=== PATIENT | male | born 1985 | race Caucasian/White ===

== ENCOUNTER 2021-02-21 19:09 | Emergency (ER) | payer BC, OTHER ==
[2021-02-21 19:36] VITALS: BP 131/80; PULSE 74; O2SAT 100
[2021-02-21] MEDS ORDERED: BABY ASPIRIN 81 MG CHEW PO ONE (19:46)
[2021-02-21] MEDS ORDERED: DUONEB 0.5-3 MG/3 ml Neb IH ONE (19:47)
--- NOTE | 2021-02-21 20:03 | ERPHSYRPT ---
- History of Present Illness Time Seen by Provider: 02/21/21 19:11 Historian: patient Exam Limitations: no limitations Patient Subjective Stated Complaint: pt states he has not used meth in 3-4 days and thinks hes having symptoms related to coming off the meth. states he has chest pressure, dizziness, and anxiety. Triage Nursing Assessment: pt alert and oriented, answers questions approp. pt ambulatory with steady gait noted. respirations nonlabored with lungs cta, skin warm and dry. heart rate 74 on monitor, sinus rhythm. Physician History: 35 years old male with history of tobacco abuse, substance abuse presented in the ER with chief complaint of chest pain and tightness with pressure last 3 days. Patient reports he quit using methamphetamine 3 days ago cold turkey and started to have chest pressure and tightness and feels as if somebody is sitting on his chest. It hurts to take a deep breath. Patient is very anxious and feels as if he is having panic attacks with throat closing sensations at times. Denies any productive cough fever chills or shortness of breath. Timing/Duration: day(s) (3), constant, gradual onset, worse Activities at Onset: rest Quality: fullness, pressure Location: central Chest Pain Radiation: no radiation Severity of Pain-Max: moderate Severity of Pain-Current: moderate Associated Symptoms: shortness of breath, hurts to breathe Prior Chest Pain/Cardiac Workup: no prior cardiac workup Nitro Today/Relief: no nitro taken today Aspirin Treatment Today: no aspirin today Allergies/Adverse Reactions: aripiprazole [From Abilify] Allergy (Verified 02/21/21 19:36) desvenlafaxine succinate [From Pristiq] Allergy (Verified 02/21/21 19:36) Home Medications: Unobtainable 02/21/21 [History] Hx Tetanus, Diphtheria Vaccination/Date Given: Yes Hx Influenza Vaccination/Date Given: No Hx Pneumococcal Vaccination/Date Given: No Immunizations Up to Date: Yes Travel Risk - International Travel Have you traveled outside of the country in past 3 weeks: No - Coronavirus Screening Are you exhibiting any of the following symptoms?: No Close contact with a COVID-19 positive Pt in past 14-21 Days: No - Vaccine Status Have you recieved a Covid-19 vaccination: No - Review of Systems Constitutional: No Symptoms Eyes: No Symptoms Ears, Nose, & Throat: No Symptoms Respiratory: No Symptoms Cardiac: Chest Pain Abdominal/Gastrointestinal: No Symptoms Genitourinary Symptoms: No Symptoms Musculoskeletal: No Symptoms Skin: No Symptoms Neurological: No Symptoms Psychological: Anxiety Endocrine: No Symptoms Hematologic/Lymphatic: No Symptoms Immunological/Allergic: No Symptoms - Past Medical History Pertinent Past Medical History: No Neurological History: No Pertinent History ENT History: No Pertinent History Cardiac History: No Pertinent History Respiratory History: COPD Endocrine Medical History: No Pertinent History Musculoskeletal History: No Pertinent History GI Medical History: No Pertinent History History: No Pertinent History Psycho-Social History: Anxiety, Bipolar Male Reproductive Disorders: No Pertinent History Other Medical History: pt had irregular heart beat as a child but has outgrown has been diagnosed with being bipolar but hasnt taken meds for years - Past Surgical History Past Surgical History: Yes Neuro Surgical History: No Pertinent History Cardiac: No Pertinent History Respiratory: No Pertinent History Gastrointestinal: Hernia Repair Genitourinary: No Pertinent History Musculoskeletal: Orthopedic Surgery Male Surgical History: No Pertinent History Other Surgical History: TONSIL,ELBOW - Social History Smoking Status: Current every day smoker Exposure to second hand smoke: No Drug Use: methamphetamines Patient Lives Alone: No - Nursing Vital Signs Nursing Vital Signs: Initial Vital Signs Temperature 98.2 F 02/21/21 19:22 Pulse Rate 74 02/21/21 19:22 Respiratory Rate 18 02/21/21 19:22 Blood Pressure 131/80 02/21/21 19:22 O2 Sat by Pulse Oximetry 100 02/21/21 19:22 Pain Scale Pain Intensity 5 - Physical Exam General Appearance: no apparent distress, alert, anxiety Eye Exam: PERRL/EOMI, eyes nml inspection Ears, Nose, Throat Exam: normal ENT inspection, pharynx normal Neck Exam: normal inspection, non-tender, supple, full range of motion Respiratory Exam: normal breath sounds, lungs clear Cardiovascular Exam: regular rate/rhythm, normal heart sounds Gastrointestinal/Abdomen Exam: soft, No tenderness Back Exam: normal inspection, normal range of motion Extremity Exam: normal inspection, normal range of motion, pelvis stable Neurologic Exam: alert, oriented x 3, cooperative, lens gauger II-XII nml as tested Skin Exam: normal color SpO2 Interpretation: normal SpO2: 100 O2 Delivery: Room Air - Course EKG Interpreted by Me: RATE (80), Sinus Rhythm, NORMAL AXIS, NORMAL INTERVALS, NORMAL QRS Ordered Tests: Active Orders 24 hr Category Date Time Status AMA [Release AMA] OM.NOW Care 02/21/21 20:01 Active Compounding Pharmacy Technician STAT Care 02/21/21 19:47 Active EKG-ER Only STAT Care 02/21/21 19:46 Active IV Insertion STAT Care 02/21/21 19:46 Active CBC W DIFF Stat Lab 02/21/21 19:46 Ordered CMP Stat Lab 02/21/21 19:46 Ordered D-DIMER QUANTITATIVE Stat Lab 02/21/21 19:46 Ordered NT PRO BNP Stat Lab 02/21/21 19:46 Ordered TROPONIN Q3H Lab 02/21/21 20:00 Ordered TROPONIN Q3H Lab 02/21/21 23:00 Ordered TROPONIN Q3H Lab 02/22/21 02:00 Ordered TROPONIN Q3H Lab 02/22/21 05:00 Ordered TROPONIN Q3H Lab 02/22/21 08:00 Ordered Medication Summary Discontinued Medications Generic Name Dose Route Start Last Admin Trade Name Freq PRN Reason Stop Dose Admin Albuterol/Ipratropium 3 ml 02/21/21 19:47 Ipratropium/Albuterol Sulfate 3 Ml Ampul.Neb IH 02/21/21 19:48 STAT ONE Aspirin 324 mg 02/21/21 19:46 Aspirin 81 Mg Tab.Chew PO 02/21/21 19:47 STAT ONE - Progress Progress: unchanged Air Movement: good Progress Note: 02/21/21 20:03 EKG did not show any acute ischemic changes, normal sinus rhythm. Patient is very anxious, chest pain work-up is ordered but he decided to leave. I went in the room to discuss with patient about importance of work-up and leaving AGAINST MEDICAL ADVICE with not only delayed diagnosis but can also worsen the condition including having a heart attack but he states "I cannot stay in the hospital and I have to go". Advised to follow-up with primary care and computer consultant. Discussed signs symptoms of worsening needing return to ER which he seems understanding. He did not wait for the paperwork and left. Blood Culture(s) Obtained: No Antibiotics given: No Counseled pt/family regarding: diagnosis, need for follow-up - Departure Departure Disposition: AMA Clinical Impression: Substance abuse, Anxiety, Acute drug withdrawal syndrome Chest pain Qualifiers: Chest pain type: unspecified Qualified Code(s): R07.9 - Chest pain, unspecified Condition: Stable Critical Care Time: No Referrals: KI MERINO NP [Primary Care Provider] - Follow up/PCP as directed (Tomorrow for reevaluation) JOSE EDUARDO BURNS [ACTIVE STAFF] - Follow up/PCP as directed (Call tomorrow for appointment and reevaluation) Instructions: Chest Pain (DC) Additional Instructions: Do not use drugs. Follow-up with primary care and computer consultant for reevaluation. Return to ER for persistent chest pain, difficulty breathing/pressure in the chest etc.
== END 2021-02-21 19:53 | disposition left against medical advice (07) ==
LOC: ED 19:09
DX: R07.9 Chest pain, unspecified (principal); F15.13 Other stimulant abuse with withdrawal; F15.180 Other stimulant abuse with stimulant-induced anxiety disorder; R06.02 Shortness of breath; Z72.0 Tobacco use
CPT/HCPCS: 36000; 93005; 93041; 99284

== ENCOUNTER 2023-01-29 23:04 | Emergency (ER) | payer OTHER ==
[2023-01-30 00:01] VITALS: TEMP 98.5
[2023-01-30 00:50] LABS: Group A Strep NOT DETECTED (NEGATIVE)
[2023-01-30 01:02] LABS: INFLUENZA A NEGATIVE (NEGATIVE); INFLUENZA B NEGATIVE (NEGATIVE); RESPIRATORY SYNCTIAL VIRUS NEGATIVE (NEGATIVE); SARS-CoV-2 Xpert Express NEGATIVE (NEGATIVE)
[2023-01-30] MEDS ORDERED: Vibramycin 100 MG PO ONE (01:21)
[2023-01-30] MEDS ORDERED: Vibramycin 100 MG ONE (01:25)
[2023-01-30 01:28] VITALS: BP 110/67; PULSE 66; RESP 18
[2023-01-30 01:32] VITALS: O2SAT 99
--- NOTE | 2023-01-30 01:32 | ERPHSYRPT ---
- History of Present Illness Time Seen by Provider: 01/29/23 23:17 Source: patient Exam Limitations: no limitations Patient Subjective Stated Complaint: pt states "I started feeling sick 2 days ago." Triage Nursing Assessment: pt ambulatory to bed by self with steady gait, pt alert and oriented x3, skin pwd, pt c/o cough, sore throat, body aches, and fatigue since thursday, pt states he had pna about a month ago but was treated for it, pt has hx of COPD, last used meth 2 days ago Physician History: 37-year-old male with history of emphysema, tobacco abuse presented in the ER with chief complaint of cough congestion, body aches and subjective feeling of fever and chills for the last 2 days. He has been using [id number] medication with no significant relief. Patient reports coughing up copious amount of clear to yellow sputum. Denies any difficulty breathing. Allergies/Adverse Reactions: aripiprazole [From Abilify] Allergy (Verified 01/29/23 23:57) desvenlafaxine succinate [From Pristiq] Allergy (Verified 01/29/23 23:57) Hx Tetanus, Diphtheria Vaccination/Date Given: Yes Hx Influenza Vaccination/Date Given: No Hx Pneumococcal Vaccination/Date Given: No Immunizations Up to Date: No Travel Risk - International Travel Have you traveled outside of the country in past 3 weeks: No - Coronavirus Screening Are you exhibiting any of the following symptoms?: Yes Symptoms: Cough: New Onset, Loss of Taste or Smell, Headaches/Body Aches/Fatigue Close contact with a COVID-19 positive Pt in past 14-21 Days: No - Vaccine Status Have you recieved a Covid-19 vaccination: No - Review of Systems Constitutional: Fever, Chills, Fatigue, Weakness Eyes: No Symptoms Ears, Nose, & Throat: Nose Congestion Respiratory: Cough Cardiac: No Symptoms Abdominal/Gastrointestinal: No Symptoms Musculoskeletal: Myalgias Skin: No Symptoms Neurological: No Symptoms Endocrine: No Symptoms Hematologic/Lymphatic: No Symptoms - Past Medical History Pertinent Past Medical History: No Neurological History: Seizures ENT History: No Pertinent History Cardiac History: No Pertinent History Respiratory History: COPD, Emphysema Endocrine Medical History: No Pertinent History Musculoskeletal History: No Pertinent History GI Medical History: No Pertinent History History: No Pertinent History Psycho-Social History: Anxiety, Bipolar Male Reproductive Disorders: No Pertinent History Other Medical History: pt had irregular heart beat as a child but has outgrown has been diagnosed with being bipolar but hasnt taken meds for years - Past Surgical History Past Surgical History: Yes Neuro Surgical History: No Pertinent History Cardiac: No Pertinent History Respiratory: No Pertinent History Gastrointestinal: Hernia Repair Genitourinary: No Pertinent History Musculoskeletal: Orthopedic Surgery Male Surgical History: No Pertinent History Other Surgical History: TONSIL,ELBOW - Social History Smoking Status: Current every day smoker Exposure to second hand smoke: No Drug Use: methamphetamines Patient Lives Alone: No - Nursing Vital Signs Nursing Vital Signs: Initial Vital Signs Temperature 98.5 F 01/29/23 23:58 Pulse Rate 74 01/29/23 23:58 Respiratory Rate 18 01/29/23 23:58 Blood Pressure 116/62 01/29/23 23:58 O2 Sat by Pulse Oximetry 98 01/29/23 23:58 Pain Scale Pain Intensity 0 - Physical Exam General Appearance: no apparent distress, alert Eye Exam: PERRL/EOMI Ears, Nose, Throat Exam: normal ENT inspection Neck Exam: normal inspection, supple, full range of motion Respiratory Exam: normal breath sounds, lungs clear Cardiovascular Exam: regular rate/rhythm, normal heart sounds Back Exam: normal inspection, normal range of motion Extremity Exam: normal inspection, normal range of motion Neurologic Exam: alert, oriented x 3, cooperative Skin Exam: normal color SpO2 Interpretation: normal SpO2: 99 O2 Delivery: Room Air Ordered Tests: Active Orders 24 hr Category Date Time Status CHEST 1 VIEW (PORTABLE) Stat Exams 01/30/23 00:40 Taken Medication Summary Discontinued Medications Generic Name Dose Route Start Last Admin Trade Name Alissa PRN Reason Stop Dose Admin Doxycycline Hyclate 100 mg 01/30/23 01:21 01/30/23 01:26 Doxycycline Hyclate 100 Mg Tablet PO 01/30/23 01:22 100 mg STAT ONE Administration Doxycycline Hyclate Confirm 01/30/23 01:25 Doxycycline Hyclate 100 Mg Tablet Administered 01/30/23 01:26 Dose 100 mg .ROUTE .STK-MED ONE Lab/Rad Data: Laboratory Results 01/30/23 Range/Units 00:23 Influenza Type A Ag NEGATIVE (NEGATIVE) Influenza Type B Ag NEGATIVE (NEGATIVE) RSV (PCR) NEGATIVE (NEGATIVE) SARS-CoV-2 (PCR) NEGATIVE (NEGATIVE) Group A Strep Antibody NOT DETECTED (NEGATIVE) - Progress Progress: unchanged Air Movement: good Progress Note: 01/30/23 01:29 37-year-old male with history of emphysema, tobacco abuse presented in the ER with chief complaint of cough congestion, body aches and subjective feeling of fever and chills for the last 2 days. He has been using [id number] medication with no significant relief. Patient reports coughing up copious amount of clear to yellow sputum. Denies any difficulty breathing. Lungs are fairly clear to auscultation. Patient is not in any distress. Stable vitals. Chest x-ray showed questionable infiltrative process in bibasilar. Started on doxycycline. Patient has a history of recurrent pneumonias. Has negative strep flu COVID and RSV. Recommended [id number] cough medications. Discussed signs symptoms of worsening needing return to ER which he seems understanding. Stable for discharge. Blood Culture(s) Obtained: No Antibiotics given: Yes Counseled pt/family regarding: lab results, diagnosis, need for follow-up, rad results Medical Desision Making - Diagnostic Testing Diagnostic test were ordered, analyzed, and reviewed by me: Yes Radiological Interpretation: Interpreted by me, Reviewed by me - Risk of complications The pt has a mod risk of morbidity or mortality based on: Need for prescription drug management - Departure Departure Disposition: Home Clinical Impression: URI with cough and congestion Condition: Stable Critical Care Time: No Referrals: VIRY WATERS MD [Primary Care Provider] - Follow up with PCP 1 day Instructions: Cough, Adult (DC) Additional Instructions: Do not smoke. Follow-up with primary care for reevaluation. Return to ER for worsening cough or if having difficulty breathing/fever chills etc. Prescriptions: Guaifenesin/Dextromethorphan [Mucinex Dm ER 1,200-60 mg Tab] 1 each PO BID 6 Days #12 tablet Doxycycline Hyclate 100 mg [Vibramycin 100 MG] 100 mg PO BID #14 tab
--- NOTE | 2023-01-30 08:38 | XRAY ---
Indication: Cough. Comparison: August 18, 2022 Portable chest demonstrates normal heart, lungs, and bony thorax.
== END 2023-01-30 01:42 | disposition home or self-care (01) ==
LOC: ED 23:04
DX: J06.9 Acute upper respiratory infection, unspecified (principal); R05.1 Acute cough; R09.81 Nasal congestion; M79.10 Myalgia, unspecified site; J43.9 Emphysema, unspecified; Z28.310 Unvaccinated for COVID-19; Z72.0 Tobacco use
CPT/HCPCS: 0241U; 71045; 87651; 99283; A9270-GY

== ENCOUNTER 2023-05-07 22:04 | Emergency (ER) | payer OTHER ==
[2023-05-07 22:20] VITALS: TEMP 97.4
[2023-05-07] MEDS ORDERED: BABY ASPIRIN 81 MG CHEW ONE (22:31)
[2023-05-07] MEDS ORDERED: XYLOCAINE VISCOUS 2% 15 ML CUP ONE (22:31)
[2023-05-07] MEDS ORDERED: MAALOX ES 30 ML UNIT DOSE ONE (22:31)
[2023-05-07] MEDS: GI COCKTAIL 45 ML (Maalox/Lidocaine) PO ONE (22:36)
[2023-05-07] MEDS: BABY ASPIRIN 81 MG CHEW PO ONE (22:36)
[2023-05-07 23:00] LABS: Absolute Neutrophil Ct (ANC) 3.39 x10^3/uL (1.4-6.9); BASOPHIL % 0.7 % (0.0-0.4); Basophil (Absolute #) 0.04 x10^3/uL (0-0.4); Eosinophil % 4.9 % (0.00-5.0); Eosinophil (Absolute #) 0.28 x10^3/uL (0-0.5); Hematocrit 45.3 % (42-50); Hemoglobin 14.9 g/dL (12.5-18.0); IMMATURE GRAN # 0.02 x10^3u/L (0.00-0.03); IMMATURE GRAN % 0.3 % (0.00-0.4); Lymphocytes % 27.8 % (24.0-44.0); Mean Cell Volume 91.3 fL (78-100); Mean Corpuscular Hgb Concent. 32.9 g/dL (32-36); Mean Platelet Volume 9.1 fL (7.5-11.0); Monocyte (Absolute #) 0.42 x10^3/uL (0.0-1.3); Monocytes % 7.3 % (0.0-12.0); Platelet Count 241 x10^3/uL (150-450); Red Blood Count 4.96 x10^6/uL (4.1-5.6); Red Cell Distribution Width 12.7 % (11.5-14.0); White Blood Count 5.8 x10^3/uL (4.0-10.5)
--- NOTE | 2023-05-07 23:04 | ERPHSYRPT ---
- History of Present Illness Time Seen by Provider: 05/07/23 22:06 Historian: patient Exam Limitations: no limitations Patient Subjective Stated Complaint: pt states that at approx noon yesterday while playing with his he started having cp located to left chest that has been a constant dull ache then today the main has moved to mid sternal, rated 6/10 scale and described as dull ache. reports also intermittent sob and feeling "faint" but is unable to further describe this. Triage Nursing Assessment: pt ambulated into room 6 independently with slow steady gait after standing on scale for weight acquisition. pt is alert and oriented times three, able to speak in complete sentences, able to move all extremities, and with resp even and unlabored without use of accessory muscles. pt states he stopped using meth approx 6 days ago and has had similar symptoms when quitting before just not to this extent. no edema or JVD noted. bilat post tib and radial pulses palpable, bilat anterior/ posterior lung sounds clear and diminished throughout. heart sound regular upon auscultation. pt intermittently falling asleep during assessment requiring questions to be asked a second or third time to induce response. Physician History: 38 years old male with history of substance abuse, tobacco abuse presented in the ER with complains of chest pains since yesterday afternoon. Left-sided and now substernal dull aching mild to moderate without any significant aggravating factors, partially relieved with applying pressure on the left anterior chest wall. Also reports some shortness of breath at times. Patient reports dull cramping in the muscles. Also feeling dizzy and lightheaded at times. Has moderate productive cough. No fever or chills reported. Patient denies any history of coronary artery disease. Patient reports he uses methamphetamine regularly almost every day for 2 years and stopped almost 6 days ago. Nitro Today/Relief: no nitro taken today Aspirin Treatment Today: no aspirin today Allergies/Adverse Reactions: aripiprazole [From Abilify] Allergy (Verified 05/07/23 22:06) desvenlafaxine succinate [From Pristiq] Allergy (Verified 05/07/23 22:06) Hx Tetanus, Diphtheria Vaccination/Date Given: Yes Hx Influenza Vaccination/Date Given: No Hx Pneumococcal Vaccination/Date Given: No Immunizations Up to Date: Yes Travel Risk - International Travel Have you traveled outside of the country in past 3 weeks: No - Coronavirus Screening Are you exhibiting any of the following symptoms?: No Close contact with a COVID-19 positive Pt in past 14-21 Days: No - Vaccine Status Have you recieved a Covid-19 vaccination: No - Review of Systems Constitutional: No Symptoms Eyes: No Symptoms Ears, Nose, & Throat: No Symptoms Respiratory: Cough, Dyspnea Cardiac: Chest Pain Abdominal/Gastrointestinal: No Symptoms Genitourinary Symptoms: No Symptoms Musculoskeletal: Myalgias Skin: No Symptoms Neurological: No Symptoms Endocrine: No Symptoms Hematologic/Lymphatic: No Symptoms - Past Medical History Pertinent Past Medical History: Yes Neurological History: Seizures ENT History: No Pertinent History Cardiac History: No Pertinent History Respiratory History: COPD, Emphysema Endocrine Medical History: No Pertinent History Musculoskeletal History: No Pertinent History GI Medical History: No Pertinent History History: No Pertinent History Psycho-Social History: Anxiety, Bipolar Male Reproductive Disorders: No Pertinent History Other Medical History: pt had irregular heart beat as a child but has outgrown has been diagnosed with being bipolar but hasnt taken meds for years - Past Surgical History Past Surgical History: Yes Neuro Surgical History: No Pertinent History Cardiac: No Pertinent History Respiratory: No Pertinent History Gastrointestinal: Hernia Repair Genitourinary: No Pertinent History Musculoskeletal: Orthopedic Surgery Male Surgical History: No Pertinent History Other Surgical History: TONSIL,ELBOW - Social History Smoking Status: Current every day smoker How long have you smoked: 15yo Exposure to second hand smoke: No Drug Use: methamphetamines Patient Lives Alone: No - Nursing Vital Signs Nursing Vital Signs: Initial Vital Signs Temperature 97.4 F 05/07/23 22:05 Pulse Rate 77 05/07/23 22:05 Respiratory Rate 16 05/07/23 22:05 Blood Pressure 139/85 05/07/23 22:05 O2 Sat by Pulse Oximetry 99 05/07/23 22:05 Pain Scale Pain Intensity 4 - Physical Exam General Appearance: no apparent distress, alert Eye Exam: PERRL/EOMI Ears, Nose, Throat Exam: normal ENT inspection Neck Exam: normal inspection, non-tender, supple, full range of motion Respiratory Exam: normal breath sounds, lungs clear Cardiovascular Exam: regular rate/rhythm, normal heart sounds Gastrointestinal/Abdomen Exam: soft, normal bowel sounds, No tenderness Back Exam: normal inspection Extremity Exam: normal inspection, normal range of motion Neurologic Exam: alert, oriented x 3, cooperative, medical records field technician II-XII nml as tested Skin Exam: normal color SpO2 Interpretation: normal SpO2: 98 O2 Delivery: Room Air - Course EKG Interpreted by Me: RATE (77), Sinus Rhythm, NORMAL AXIS, NORMAL INTERVALS, NORMAL QRS Ordered Tests: Active Orders 24 hr Category Date Time Status Probation And Patrol Agent STAT Care 05/07/23 22:26 Completed EKG-ER Only STAT Care 05/07/23 22:26 Completed Pulse Oximetry (ED) STAT Care 05/07/23 22:26 Completed CHEST 1 VIEW (PORTABLE) Stat Exams 05/07/23 22:41 Taken CBC W DIFF Stat Lab 05/07/23 22:26 Completed CK-Creatinine Phosphokinase Stat Lab 05/07/23 23:05 Completed CMP Stat Lab 05/07/23 23:05 Completed D-DIMER QUANTITATIVE Stat Lab 05/07/23 23:05 Completed NT PRO BNPII Stat Lab 05/07/23 23:05 Completed TROPONIN Q4H Lab 05/07/23 23:05 Completed TROPONIN Q4H Lab 05/08/23 01:19 Completed Urine Triage Profile Stat Lab 05/07/23 23:10 Completed Medication Summary Discontinued Medications Generic Name Dose Route Start Last Admin Trade Name Freq PRN Reason Stop Dose Admin Al Hydrox/Mg Hydrox/Simethicone Confirm 05/07/23 22:31 Mag Hydrox/Al Hydrox/Simeth 30 Ml Udcup Administered 05/07/23 22:32 Dose 30 ml .ROUTE .STK-MED ONE Aspirin 324 mg 05/07/23 22:26 05/07/23 22:36 Aspirin 81 Mg Tab.Chew PO 05/07/23 22:27 324 mg STAT ONE Administration Aspirin Confirm 05/07/23 22:31 Aspirin 81 Mg Tab.Chew Administered 05/07/23 22:32 Dose 324 mg .ROUTE .STK-MED ONE Lidocaine HCl Confirm 05/07/23 22:31 Lidocaine Hcl 2% Viscous 15 Ml Udcup Administered 05/07/23 22:32 Dose 15 ml .ROUTE .STK-MED ONE Magnesium Hydroxide 45 ml 05/07/23 22:28 05/07/23 22:36 Mag Hydrx/Alum Hyd/Simeth/Lido 45 Ml Bottle PO 05/07/23 22:29 45 ml STAT ONE Administration Pantoprazole Sodium 40 mg 05/08/23 01:13 05/08/23 01:16 Protonix (Pantoprazole) 40 Mg Tablet PO 05/08/23 01:14 40 mg STAT ONE Administration Pantoprazole Sodium Confirm 05/08/23 01:14 Protonix (Pantoprazole) 40 Mg Tablet Administered 05/08/23 01:15 Dose 40 mg .ROUTE .[facility]-MED ONE Lab/Rad Data: Laboratory Result Diagrams 05/07/23 22:26 05/07/23 23:05 Laboratory Results 05/08/23 05/07/23 05/07/23 Range/Units 01:19 23:10 23:05 WBC (4.0-10.5) x10^3/uL RBC (4.1-5.6) x10^6/uL Hgb (12.5-18.0) g/dL Hct (42-50) % MCV (78-100) fL MCH (26-32) pg MCHC (32-36) g/dL RDW (11.5-14.0) % Plt Count (150-450) x10^3/uL MPV (7.5-11.0) fL Gran % (36.0-66.0) % Immature Gran % (Auto) (0.00-0.4) % Nucleat RBC Rel Count (0.00-0.1) % Eos # (Auto) (0-0.5) x10^3/uL Immature Gran # (Auto) (0.00-0.03) x10^3u/L Absolute Lymphs (auto) (1.0-4.6) x10^3/uL Absolute Monos (auto) (0.0-1.3) x10^3/uL Absolute Nucleated RBC (0.00-0.01) x10^3u/L Lymphocytes % (24.0-44.0) % Monocytes % (0.0-12.0) % Eosinophils % (0.00-5.0) % Basophils % (0.0-0.4) % Absolute Granulocytes (1.4-6.9) x10^3/uL Basophils # (0-0.4) x10^3/uL D-Dimer (0.0-0.50) mg/L Sodium (137-145) mmol/L Potassium (3.5-5.1) mmol/L Chloride (98-107) mmol/L Carbon Dioxide (22-30) mmol/L Anion Gap (5-15) MEQ/L BUN (9-20) mg/dL Creatinine (0.66-1.25) mg/dL Estimated GFR ML/MIN Glucose (74-106) mg/dL Calcium (8.4-10.2) mg/dL Total Bilirubin (0.2-1.3) mg/dL AST (17-59) U/L ALT (0-50) U/L Alkaline Phosphatase (38-126) U/L Creatine Kinase (55-170) U/L Troponin I < 0.012 (0.000-0.034) ng/mL NT-Pro-B Natriuret Pep < 20.0 (<300) pg/mL Serum Total Protein (6.3-8.2) g/dL Albumin (3.5-5.0) g/dL Urine Opiates Level NEGATIVE (NEGATIVE) Ur Methadone NEGATIVE (NEGATIVE) Urine Barbiturates NEGATIVE (NEGATIVE) Ur Phencyclidine (PCP) NEGATIVE (NEGATIVE) Urine Amphetamine POSITIVE A (NEGATIVE) U Benzodiazepine Level NEGATIVE (NEGATIVE) Urine Cocaine NEGATIVE (NEGATIVE) Urine Marijuana (THC) NEGATIVE (NEGATIVE) 05/07/23 05/07/23 05/07/23 Range/Units 23:05 23:05 23:05 WBC (4.0-10.5) x10^3/uL RBC (4.1-5.6) x10^6/uL Hgb (12.5-18.0) g/dL Hct (42-50) % MCV (78-100) fL MCH (26-32) pg MCHC (32-36) g/dL RDW (11.5-14.0) % Plt Count (150-450) x10^3/uL MPV (7.5-11.0) fL Gran % (36.0-66.0) % Immature Gran % (Auto) (0.00-0.4) % Nucleat RBC Rel Count (0.00-0.1) % Eos # (Auto) (0-0.5) x10^3/uL Immature Gran # (Auto) (0.00-0.03) x10^3u/L Absolute Lymphs (auto) (1.0-4.6) x10^3/uL Absolute Monos (auto) (0.0-1.3) x10^3/uL Absolute Nucleated RBC (0.00-0.01) x10^3u/L Lymphocytes % (24.0-44.0) % Monocytes % (0.0-12.0) % Eosinophils % (0.00-5.0) % Basophils % (0.0-0.4) % Absolute Granulocytes (1.4-6.9) x10^3/uL Basophils # (0-0.4) x10^3/uL D-Dimer < 0.19 (0.0-0.50) mg/L Sodium 138 (137-145) mmol/L Potassium 4.5 (3.5-5.1) mmol/L Chloride 104 (98-107) mmol/L Carbon Dioxide 28 (22-30) mmol/L Anion Gap 10.1 (5-15) MEQ/L BUN 14 (9-20) mg/dL Creatinine 1.02 (0.66-1.25) mg/dL Estimated GFR 97.7 ML/MIN Glucose 103 (74-106) mg/dL Calcium 9.2 (8.4-10.2) mg/dL Total Bilirubin 1.10 (0.2-1.3) mg/dL AST 23 (17-59) U/L ALT 18 (0-50) U/L Alkaline Phosphatase 70 (38-126) U/L Creatine Kinase 99 (55-170) U/L Troponin I < 0.012 (0.000-0.034) ng/mL NT-Pro-B Natriuret Pep (<300) pg/mL Serum Total Protein 7.3 (6.3-8.2) g/dL Albumin 4.2 (3.5-5.0) g/dL Urine Opiates Level (NEGATIVE) Ur Methadone (NEGATIVE) Urine Barbiturates (NEGATIVE) Ur Phencyclidine (PCP) (NEGATIVE) Urine Amphetamine (NEGATIVE) U Benzodiazepine Level (NEGATIVE) Urine Cocaine (NEGATIVE) Urine Marijuana (THC) (NEGATIVE) 05/07/23 Range/Units 22:26 WBC 5.8 (4.0-10.5) x10^3/uL RBC 4.96 (4.1-5.6) x10^6/uL Hgb 14.9 (12.5-18.0) g/dL Hct 45.3 (42-50) % MCV 91.3 (78-100) fL MCH 30.0 (26-32) pg MCHC 32.9 (32-36) g/dL RDW 12.7 (11.5-14.0) % Plt Count 241 (150-450) x10^3/uL MPV 9.1 (7.5-11.0) fL Gran % 59.0 (36.0-66.0) % Immature Gran % (Auto) 0.3 (0.00-0.4) % Nucleat RBC Rel Count 0.0 (0.00-0.1) % Eos # (Auto) 0.28 (0-0.5) x10^3/uL Immature Gran # (Auto) 0.02 (0.00-0.03) x10^3u/L Absolute Lymphs (auto) 1.60 (1.0-4.6) x10^3/uL Absolute Monos (auto) 0.42 (0.0-1.3) x10^3/uL Absolute Nucleated RBC 0.00 (0.00-0.01) x10^3u/L Lymphocytes % 27.8 (24.0-44.0) % Monocytes % 7.3 (0.0-12.0) % Eosinophils % 4.9 (0.00-5.0) % Basophils % 0.7 (0.0-0.4) % Absolute Granulocytes 3.39 (1.4-6.9) x10^3/uL Basophils # 0.04 (0-0.4) x10^3/uL D-Dimer (0.0-0.50) mg/L Sodium (137-145) mmol/L Potassium (3.5-5.1) mmol/L Chloride (98-107) mmol/L Carbon Dioxide (22-30) mmol/L Anion Gap (5-15) MEQ/L BUN (9-20) mg/dL Creatinine (0.66-1.25) mg/dL Estimated GFR ML/MIN Glucose (74-106) mg/dL Calcium (8.4-10.2) mg/dL Total Bilirubin (0.2-1.3) mg/dL AST (17-59) U/L ALT (0-50) U/L Alkaline Phosphatase (38-126) U/L Creatine Kinase (55-170) U/L Troponin I (0.000-0.034) ng/mL NT-Pro-B Natriuret Pep (<300) pg/mL Serum Total Protein (6.3-8.2) g/dL Albumin (3.5-5.0) g/dL Urine Opiates Level (NEGATIVE) Ur Methadone (NEGATIVE) Urine Barbiturates (NEGATIVE) Ur Phencyclidine (PCP) (NEGATIVE) Urine Amphetamine (NEGATIVE) U Benzodiazepine Level (NEGATIVE) Urine Cocaine (NEGATIVE) Urine Marijuana (THC) (NEGATIVE) - Progress Progress: improved, re-examined Air Movement: good Progress Note: 05/08/23 02:23 38 years old is evaluated for chest pain. EKG is normal sinus rhythm with no acute ischemic changes. Patient is negative troponins x 2. Has negative D- dimers. Chest x-ray negative for any acute cardiopulmonary findings reviewed by me, official report is pending. Patient workup showed normal white count, unremarkable chemistries. Patient has been coughing a lot lately, could have some element of bronchitis and has multiple pneumonias in the past we will give him azithromycin for that. Patient pain is not very typical for CAD and gets better with pressure/ranging on the chest wall muscles. Patient is very anxious and part of his symptoms are secondary to methamphetamine withdrawal as he has been a regular user for the last 2 years. He is given Protonix and GI cocktail along with aspirin, on reevaluation he is feeling better, does not want anything stronger. Patient is low heart score, do not think needs to be admitted for further evaluation but can do outpatient follow-up. Discussed signs symptoms of worsening needing return to ER which he seems understanding. Blood Culture(s) Obtained: No Antibiotics given: No Counseled pt/family regarding: lab results, diagnosis, need for follow-up, rad results Medical Desision Making - Independent Historian Additional History obtained from: Spouse - Diagnostic Testing Diagnostic test were ordered, analyzed, and reviewed by me: Yes Radiological Interpretation: Interpreted by me, Reviewed by me - Risk of complications The pt has a mod risk of morbidity or mortality based on: Need for prescription drug management - Departure Departure Disposition: Home Clinical Impression: Atypical chest pain, GERD with esophagitis, Substance abuse Condition: Stable Critical Care Time: No Referrals: VIRY WATERS MD [Primary Care Provider] - Follow up with PCP 1 day JOSE EDUARDO BURNS [CONSULTING PHYSICIAN] - Follow up/PCP as directed (call in 1 day for appointment for reevaluation) Instructions: Angina (DC), Chest Pain (DC) Additional Instructions: Do not smoke. Do not use methamphetamine. Drink plenty of fluids. Take Tylenol as needed. Follow-up with your primary care and head waiter/waitress for reevaluation. Return to ER for intractable chest pain, difficulty breathing. Prescriptions: PANTOPRAZOLE 40 mg Tablet [Protonix 40MG Tablet] 40 mg PO QAM #30 tab Azithromycin 250 mg [Zithromax 250 MG TABLET] 250 mg PO ZPACK #6 tablet
[2023-05-07 23:18] LABS: ALBUMIN 4.2 g/dL (3.5-5.0); ANION GAP 10.1 MEQ/L (5-15); BILIRUBIN,TOTAL 1.1 mg/dL (0.2-1.3); Calcium 9.2 mg/dL (8.4-10.2); Creatinine 1 1.02 mg/dL (0.66-1.25); EST GLOMERULAR FILTRATION RATE 97.7 ML/MIN; Potassium 4.5 mmol/L (3.5-5.1); Total Protein 7.3 g/dL (6.3-8.2)
[2023-05-07 23:37] LABS: Barbiturate,Urine NEGATIVE (NEGATIVE); Benzodiazepine,Urine NEGATIVE (NEGATIVE); Cocaine,Urine NEGATIVE (NEGATIVE); Methadone,Urine NEGATIVE (NEGATIVE); Opiate,Urine NEGATIVE (NEGATIVE); PCP,Urine NEGATIVE (NEGATIVE); THC,Urine NEGATIVE (NEGATIVE)
[2023-05-08 00:04] LABS: Amphetamine,Urine POSITIVE (NEGATIVE)
[2023-05-08] MEDS ORDERED: Protonix 40MG Tablet ONE (01:14)
[2023-05-08] MEDS: Protonix 40MG Tablet PO ONE (01:16)
[2023-05-08 01:27] VITALS: O2SAT 98
[2023-05-08 01:59] VITALS: BP 120/73; PULSE 68; RESP 18
--- NOTE | 2023-05-08 08:49 | XRAY ---
Indication: Chest pain. Comparison: January 30, 2023 Portable chest again demonstrates normal heart, lungs, and bony thorax.
== END 2023-05-08 01:56 | disposition home or self-care (01) ==
LOC: ED 22:04
DX: R07.89 Other chest pain (principal); K21.00 Gastro-esophageal reflux disease with esophagitis, without bleeding; F15.10 Other stimulant abuse, uncomplicated; R06.02 Shortness of breath; R42 Dizziness and giddiness; R05.9 Cough, unspecified; Z28.310 Unvaccinated for COVID-19; Z72.0 Tobacco use
CPT/HCPCS: 36415; 71045; 80053; 80307; 82550; 83880; 84484; 85025; 85379; 93005; 93041; 94760; 99284; A9270-GY

== ENCOUNTER 2023-12-20 02:21 | Emergency (ER) | payer OTHER ==
--- NOTE | 2023-12-20 02:52 | ERPHSYRPT ---
- History of Present Illness Time Seen by Provider: 12/20/23 02:42 Historian: patient, family Exam Limitations: no limitations Patient Subjective Stated Complaint: pt reports sudden onset of abdominal pain, states he was at [facility] ED approx 2230 last evening and was given an augmentin for a dental abscess and states after that he began having severe abdominal pain. pt reports he has several bad teeth to the right upper teeth/molars. Triage Nursing Assessment: pt is aox3, appears in pain, pupils perrl, afebrile, resps easy and non labored, cap refill < 3 seconds, radial pulses strong and equal, pt is diaphoretic, pt skin warm, elastic. pt does have slight swelling to the right face/jaw line. Physician History: Pt complains of having aching weakness and went to ER in and got CT and took augmentin but now has abd pain and CP. Nontender abd. No SOBreath. States he did not have dental pain but did have headache. Swallowing OK in ER. No meningismus Discussed risks/benefits of testing Tx with pt and family including CT CHest and Abd, CBC, CMP, Lactate, L:ipase UA, EKG, Trops, Swabs for Covid and RSV, Flu . Rocephin, IVFm and they wish to proceed so these are ordered. Family is independent source for Hx in ER. The outside medical records from [facility] ER were requested and reviewed and document normal head CT and probably dental abscess but nothing to drain - no collection just inflammation. Timing/Duration: today Activities at Onset: none Quality: sharpness Abdominal Pain Onset Location: epigastric Pain Radiation: chest Severity of Pain-Max: moderate Severity of Pain-Current: moderate Modifying Factors: Improves With: nothing Associated Symptoms: chest pain, fatigue, heartburn, weakness Previous symptoms: no prior history, recently seen, recently treated Allergies/Adverse Reactions: aripiprazole [From Abilify] Allergy (Verified 12/20/23 02:39) desvenlafaxine succinate [From Pristiq] Allergy (Verified 12/20/23 02:39) Home Medications: No Reportable Medications [No Reported Medications] 12/20/23 [History] Hx Tetanus, Diphtheria Vaccination/Date Given: Yes Hx Influenza Vaccination/Date Given: No Hx Pneumococcal Vaccination/Date Given: No Immunizations Up to Date: No Travel Risk - International Travel Have you traveled outside of the country in past 3 weeks: No - Emerging Infectious Disease Are you exhibiting symptoms associated with any current EIDs: No - Review of Systems Constitutional: Fever, Fatigue, Malaise, Weakness, No Chills Eyes: No Symptoms Ears, Nose, & Throat: No Symptoms Respiratory: No Cough, No Dyspnea Cardiac: Chest Pain, No Edema, No Syncope Abdominal/Gastrointestinal: Abdominal Pain, No Nausea, No Vomiting, No Diarrhea Genitourinary Symptoms: No Dysuria Musculoskeletal: No Back Pain, No Neck Pain Skin: No Rash Neurological: No Dizziness, No Focal Weakness, No Sensory Changes Psychological: No Symptoms Endocrine: No Symptoms Hematologic/Lymphatic: No Symptoms Immunological/Allergic: No Symptoms All Other Systems: Reviewed and Negative - Past Medical History Pertinent Past Medical History: Yes Neurological History: Seizures ENT History: No Pertinent History Cardiac History: No Pertinent History Respiratory History: COPD, Emphysema Endocrine Medical History: No Pertinent History Musculoskeletal History: No Pertinent History GI Medical History: No Pertinent History History: No Pertinent History Psycho-Social History: Anxiety, Bipolar Male Reproductive Disorders: No Pertinent History Other Medical History: pt had irregular heart beat as a child but has outgrown has been diagnosed with being bipolar but hasnt taken meds for years - Past Surgical History Past Surgical History: Yes Neuro Surgical History: No Pertinent History Cardiac: No Pertinent History Respiratory: No Pertinent History Gastrointestinal: Hernia Repair Genitourinary: No Pertinent History Musculoskeletal: Orthopedic Surgery Male Surgical History: No Pertinent History Other Surgical History: TONSIL,ELBOW - Social History Smoking Status: Current every day smoker How long have you smoked: 15yo Exposure to second hand smoke: No Drug Use: methamphetamines Patient Lives Alone: No - Nursing Vital Signs Nursing Vital Signs: Initial Vital Signs Temperature 97.0 F 12/20/23 02:30 Pulse Rate 66 12/20/23 02:30 Respiratory Rate 18 12/20/23 02:30 Blood Pressure 141/80 12/20/23 02:30 O2 Sat by Pulse Oximetry 98 12/20/23 02:30 Pain Scale Pain Intensity 5 - Physical Exam General Appearance: no apparent distress, alert Eye Exam: PERRL/EOMI, eyes nml inspection Ears, Nose, Throat Exam: normal ENT inspection, pharynx normal, moist mucous m embranes Neck Exam: normal inspection, non-tender, supple, full range of motion Respiratory Exam: normal breath sounds, lungs clear, No respiratory distress Cardiovascular Exam: regular rate/rhythm, normal heart sounds Gastrointestinal/Abdomen Exam: soft, No tenderness, No mass Back Exam: normal inspection, normal range of motion, No CVA tenderness, No vertebral tenderness Extremity Exam: normal inspection, normal range of motion, pelvis stable Neurologic Exam: alert, oriented x 3, cooperative, normal mood/affect, nml c erebellar function, sensation nml, No motor deficits Skin Exam: normal color, warm, dry SpO2 Interpretation: normal SpO2: 98 O2 Delivery: Room Air - Course Nursing assessment & vital signs reviewed: Yes EKG Interpreted by Me: Sinus Rhythm, NORMAL AXIS, NORMAL INTERVALS, NORMAL QRS, NORMAL ST-T - CT Exams Abdomen/Pelvis CT Interpretation: Tele-radiologist Report, Normal Appendix, Other (Normal GB, No cyst in pancrease or phlegmon.) Ordered Tests: Active Orders 24 hr Category Date Time Status EKG-ER Only STAT Care 12/20/23 03:00 Active IV Insertion STAT Care 12/20/23 03:00 Active ABDOMEN AND PELVIS W/0 CONTRAS [CT] Stat Exams 12/20/23 02:59 Completed CHEST WITHOUT CONTRAST [CT] Stat Exams 12/20/23 02:59 Taken AMYLASE Stat Lab 12/20/23 03:00 Completed CBC W DIFF Stat Lab 12/20/23 03:00 Completed CMP Stat Lab 12/20/23 03:00 Completed LIPASE Stat Lab 12/20/23 03:00 Completed Lactic Acid Stat Lab 12/20/23 03:15 Completed TROPONIN Q4H Lab 12/20/23 03:00 Completed TROPONIN Q4H Lab 12/20/23 07:00 Ordered TROPONIN Q4H Lab 12/20/23 11:00 Ordered UA W/RFX UR CULTURE Stat Lab 12/20/23 04:32 Completed Medication Summary Discontinued Medications Generic Name Dose Route Start Last Admin Trade Name Freq PRN Reason Stop Dose Admin Hydromorphone HCl 1 mg 12/20/23 05:12 Hydromorphone 1 Mg/1ml Inj IV 12/20/23 05:13 STAT ONE Sodium Chloride 1,000 mls @ 999 mls/hr 12/20/23 03:00 12/20/23 04:32 Sodium Chloride 0.9% 1000 Ml IV 12/20/23 04:00 Infused .Q1H1M STA Infusion Ceftriaxone Sodium 1 gm in 100 mls @ 200 mls/hr 12/20/23 03:01 12/20/23 04:09 Rocephin 1 Gm / 100 Ml Nacl IV 12/20/23 03:30 Infused STAT ONE Infusion Sodium Chloride Confirm 12/20/23 03:05 Sodium Chloride 0.9% 1000 Ml Administered 12/20/23 03:06 Dose 1,000 mls @ ud .ROUTE .STK-MED ONE Ceftriaxone Sodium Confirm 12/20/23 03:05 Rocephin 1 Gm / 100 Ml Nacl Administered 12/20/23 03:06 Dose 1 gm in 100 mls @ ud IV .STK-MED ONE Lab/Rad Data: Laboratory Result Diagrams 12/20/23 03:00 12/20/23 03:00 Laboratory Results 12/20/23 12/20/23 12/20/23 Range/Units 04:32 03:15 03:00 WBC (4.23-9.07) x10^3/uL RBC (4.63-6.08) x10^6/uL Hgb (13.7-17.5) g/dL Hct (40.1-51.0) % MCV (79.0-92.2) fL MCH (25.7-32.2) pg MCHC (32.3-36.5) g/dL RDW (11.6-14.4) % Plt Count (163-337) x10^3/uL MPV (9.4-12.4) fL Gran % (34.0-67.9) % Immature Gran % (Auto) (0.001-0.429) % Nucleat RBC Rel Count (0.00-0.2) % Eos # (Auto) (0.04-0.54) x10^3/uL Immature Gran # (Auto) (0.001-0.031) x10^3u/L Absolute Lymphs (auto) (1.32-3.57) x10^3/uL Absolute Monos (auto) (0.30-0.82) x10^3/uL Absolute Nucleated RBC (0.00-0.012) x10^3u/L Lymphocytes % (21.8-53.1) % Monocytes % (5.3-12.2) % Eosinophils % (0.8-7.0) % Basophils % (0.2-1.2) % Absolute Granulocytes (1.78-5.38) x10^3/uL Basophils # (0.01-0.08) x10^3/uL Sodium 134 L (135-145) mmol/L Potassium 3.1 L (3.5-5.1) mmol/L Chloride 101 (98-107) mmol/L Carbon Dioxide 25 (22-30) mmol/L Anion Gap 11.2 (5-15) MEQ/L BUN 14 (9-20) mg/dL Creatinine 1.14 (0.66-1.25) mg/dL Estimated GFR 85.5 ML/MIN Glucose 134 H (74-106) mg/dL Lactic Acid 1.3 (0.4-2.0) Calcium 8.4 (8.4-10.2) mg/dL Total Bilirubin 1.30 (0.2-1.3) mg/dL AST 26 (17-59) U/L ALT 22 (0-50) U/L Alkaline Phosphatase 65 (38-126) U/L Troponin I < 0.012 (0.000-0.033) ng/mL Serum Total Protein 6.7 (6.3-8.2) g/dL Albumin 3.8 (3.5-5.0) g/dL Amylase 429 H (30-110) U/L Lipase 5751 H (23-300) U/L Urine Color Dark Yellow (Yellow) Urine Appearance Clear (Clear) Urine pH 5.5 (4.6-8.0) Ur Specific Bovill >=1.030 A (1.005-1.030) Urine Protein 30 (Negative) Urine Glucose (UA) Negative (Negative) mg/dL Urine Ketones Negative (Negative) Urine Blood Negative (Negative) Urine Nitrite Negative (Negative) Urine Bilirubin Negative (Negative) Urine Urobilinogen 1.0 A (0.2) mg/dL Ur Leukocyte Esterase Negative (Negative) U Hyaline Cast (Auto) 3-5 A (0-2) /LPF Urine Microscopic RBC 0-2 (0-5) /HPF Urine Microscopic WBC 0-2 (0-5) /HPF Ur Epithelial Cells None Seen (None Seen) /HPF Urine Bacteria None Seen (None Seen) /HPF Urine Culture Reflexed NO (NO) 12/20/23 Range/Units 03:00 WBC 4.8 (4.23-9.07) x10^3/uL RBC 4.70 (4.63-6.08) x10^6/uL Hgb 13.9 (13.7-17.5) g/dL Hct 41.1 (40.1-51.0) % MCV 87.4 (79.0-92.2) fL MCH 29.6 (25.7-32.2) pg MCHC 33.8 (32.3-36.5) g/dL RDW 12.7 (11.6-14.4) % Plt Count 196 (163-337) x10^3/uL MPV 9.9 (9.4-12.4) fL Gran % 66.2 (34.0-67.9) % Immature Gran % (Auto) 0.2 (0.001-0.429) % Nucleat RBC Rel Count 0.0 (0.00-0.2) % Eos # (Auto) 0.08 (0.04-0.54) x10^3/uL Immature Gran # (Auto) 0.01 (0.001-0.031) x10^3u/L Absolute Lymphs (auto) 1.04 L (1.32-3.57) x10^3/uL Absolute Monos (auto) 0.47 (0.30-0.82) x10^3/uL Absolute Nucleated RBC 0.00 (0.00-0.012) x10^3u/L Lymphocytes % 21.8 (21.8-53.1) % Monocytes % 9.9 (5.3-12.2) % Eosinophils % 1.7 (0.8-7.0) % Basophils % 0.2 (0.2-1.2) % Absolute Granulocytes 3.15 (1.78-5.38) x10^3/uL Basophils # 0.01 (0.01-0.08) x10^3/uL Sodium (135-145) mmol/L Potassium (3.5-5.1) mmol/L Chloride (98-107) mmol/L Carbon Dioxide (22-30) mmol/L Anion Gap (5-15) MEQ/L BUN (9-20) mg/dL Creatinine (0.66-1.25) mg/dL Estimated GFR ML/MIN Glucose (74-106) mg/dL Lactic Acid (0.4-2.0) Calcium (8.4-10.2) mg/dL Total Bilirubin (0.2-1.3) mg/dL AST (17-59) U/L ALT (0-50) U/L Alkaline Phosphatase (38-126) U/L Troponin I (0.000-0.033) ng/mL Serum Total Protein (6.3-8.2) g/dL Albumin (3.5-5.0) g/dL Amylase (30-110) U/L Lipase (23-300) U/L Urine Color (Yellow) Urine Appearance (Clear) Urine pH (4.6-8.0) Ur Specific Bovill (1.005-1.030) Urine Protein (Negative) Urine Glucose (UA) (Negative) mg/dL Urine Ketones (Negative) Urine Blood (Negative) Urine Nitrite (Negative) Urine Bilirubin (Negative) Urine Urobilinogen (0.2) mg/dL Ur Leukocyte Esterase (Negative) U Hyaline Cast (Auto) (0-2) /LPF Urine Microscopic RBC (0-5) /HPF Urine Microscopic WBC (0-5) /HPF Ur Epithelial Cells (None Seen) /HPF Urine Bacteria (None Seen) /HPF Urine Culture Reflexed (NO) - Progress Progress: improved, re-examined Progress Note: 12/20/23 05:18 discussed some possible causes of pts pancreatitis with pt and spouse. He is a nondrinker, His GB looks normal on CT, He does not know lipid status which could be a cause or hereditary. 12/20/23 05:34 pt and family advised of left lung nodule for f/u with PMD workup as he is a smoker. 12/20/23 05:[address] Vazquez , our hospitalist and also with pt and family and all agree best to place pt in obs to control pain and observe for complications. Discussed with : Other (Dr. Vazquez hospitalist) Will see patient in: hospital (observation) Counseled pt/family regarding: lab results, diagnosis, need for follow-up, rad results, smoking cessation (pt advised to quit smoking) Medical Desision Making - Independent Historian Additional History obtained from: Spouse - Discussion of managment Care discussed with:: hospitalist Reviewed:: Test results, Need for additional workup Agreed on:: Treatment plan, need for follow-up, place in obs - Diagnostic Testing Diagnostic test were ordered, analyzed, and reviewed by me: Yes Radiological Interpretation: Interpreted by me, Teleradiologist Report - Risk of complications The pt has a mod risk of morbidity or mortality based on: Need for prescription drug management The pt has a high risk of morbidity or mortality based on: Decision regarding hospitilization or escalation of hosp level of care - Departure Departure Disposition: Observation Clinical Impression: Pancreatitis, Nodule of left lung, Hypokalemia Condition: Good Critical Care Time: No Referrals: VIRY WATERS MD [Primary Care Provider] - Follow up/PCP as directed Instructions: Severe Abdominal Pain, Adult (DC), Acute pancreatitis, Pulmonary nodule
[2023-12-20] MEDS ORDERED: ROCEPHIN 1 GM / 100 ML NaCl 1 GM/100 ML IVPB IV ONE (03:05)
[2023-12-20] MEDS ORDERED: Sodium Chloride 0.9% 1000 ML 1,000 ML ONE (03:05)
[2023-12-20] MEDS: Sodium Chloride 0.9% 1000 ML 1,000 ML IV STA (03:07)
[2023-12-20] MEDS: ROCEPHIN 1 GM / 100 ML NaCl 1 GM/100 ML IVPB IV ONE (03:07)
[2023-12-20 03:11] LABS: Absolute Neutrophil Ct (ANC) 3.15 x10^3/uL (1.78-5.38); BASOPHIL % 0.2 % (0.2-1.2); Basophil (Absolute #) 0.01 x10^3/uL (0.01-0.08); Eosinophil % 1.7 % (0.8-7.0); Eosinophil (Absolute #) 0.08 x10^3/uL (0.04-0.54); Hematocrit 41.1 % (40.1-51.0); Hemoglobin 13.9 g/dL (13.7-17.5); IMMATURE GRAN # 0.01 x10^3u/L (0.001-0.031); IMMATURE GRAN % 0.2 % (0.001-0.429); Lymphocyte (Absolute #) 1.04 x10^3/uL (1.32-3.57); Lymphocytes % 21.8 % (21.8-53.1); Mean Cell Volume 87.4 fL (79.0-92.2); Mean Corpuscular Hemoglobin 29.6 pg (25.7-32.2); Mean Corpuscular Hgb Concent. 33.8 g/dL (32.3-36.5); Mean Platelet Volume 9.9 fL (9.4-12.4); Monocyte (Absolute #) 0.47 x10^3/uL (0.30-0.82); Monocytes % 9.9 % (5.3-12.2); Neutrophil % 66.2 % (34.0-67.9); Platelet Count 196 x10^3/uL (163-337); Red Cell Distribution Width 12.7 % (11.6-14.4); White Blood Count 4.8 x10^3/uL (4.23-9.07)
[2023-12-20 03:40] LABS: ALBUMIN 3.8 g/dL (3.5-5.0); ALKALINE PHOSPHATASE 65 U/L (38-126); AMYLASE 429 U/L (30-110); ANION GAP 11.2 MEQ/L (5-15); BLOOD UREA NITROGEN 14 mg/dL (9-20); CHLORIDE 101 mmol/L (98-107); Calcium 8.4 mg/dL (8.4-10.2); Carbon Dioxide 25 mmol/L (22-30); Creatinine 1 1.14 mg/dL (0.66-1.25); EST GLOMERULAR FILTRATION RATE 85.5 ML/MIN; Glucose 134 mg/dL (74-106); Potassium 3.1 mmol/L (3.5-5.1); SGOT/AST 26 U/L (17-59); SGPT/ALT 22 U/L (0-50); SODIUM 134 mmol/L (135-145); TROPONIN < 0.012 ng/mL (0.000-0.033); Total Protein 6.7 g/dL (6.3-8.2)
[2023-12-20 03:43] VITALS: RESP 19
[2023-12-20 04:15] LABS: LIPASE 5751 U/L (23-300)
[2023-12-20 04:46] LABS: Appearance Clear (Clear); Bacteria None Seen /HPF (None Seen); Bilirubin Negative (Negative); Blood Negative (Negative); Epithelial Cells None Seen /HPF (None Seen); Glucose, Urine Negative (Negative); Ketones Negative (Negative); Leukocyte Esterase Negative (Negative); Nitrite Negative (Negative); Ph 5.5 (4.6-8.0); Protein,Urine Dip 30 (Negative); RBC 0-2 /HPF (0-5); Specific Gravity >=1.030 (1.005-1.030); WBC 0-2 /HPF (0-5)
[2023-12-20 04:47] LABS: ADD URINE CULTURE? NO (NO)
--- NOTE | 2023-12-20 05:07 | XRAY ---
CLINICAL HISTORY: abd pain COMPARISON: No prior studies are available for comparison. TECHNIQUE: Non-contrast CT of the abdomen and pelvis was performed, with the following protocol: axial images, and reconstructed coronal and sagittal images. One of the following dose reduction techniques was utilized for this exam: Automated exposure control, adjustment of the mA and/or kV according to patient size, and use of iterative reconstruction. FINDINGS: Abdomen: Liver: Enlarged in size reaching 20 cm in right lobe span, normal density. No focal lesions, cysts, or masses were identified. Gallbladder and Biliary System: The gallbladder is normal in size and shape. No wall thickening, pericholecystic fluid, or gallstones were identified. Pancreas: Pancreatic head, body, and tail are visualized and appear normal in size and density. No pancreatic masses or calcifications were noted. Spleen: Normal in size, shape, and density. No splenic lesions or masses were identified. few splenic calcific foci of old granuloma noted . Kidneys and Adrenal Glands: Both kidneys are normal in size, shape, and position. Cortical thickness is within normal limits. No renal calculi or hydronephrosis. Adrenal glands are unremarkable. Abdominal Aorta and Vessels: The abdominal aorta and major branches are patent without evidence of an aneurysm or significant atherosclerosis. Pelvis: Urinary Bladder: Normal in contour and wall thickness. No intraluminal lesions. Prostate: Normal in size and contour. No masses or abnormal thickening. Seminal Vesicles: Normal appearance without abnormal enlargement or mass. Scattered pelvic phliboli were noted. Peritoneal and Retroperitoneal Structures: No free fluid or abnormal fluid collections were identified within the abdomen or pelvis. No lymphadenopathy was noted. Bowel: The visualized bowel loops are normal in caliber and appearance. No evidence of bowel obstruction or wall thickening. The appendix is unremarkable. No evidence of fat stranding or indirect signs of inflammations/infections. Bones and Soft Tissues: Pelvic bones and soft tissues are unremarkable. No fractures or abnormal masses were identified. IMPRESSION: 1. Hepatomegaly revealed. 2. Small calcific splenic foci, likely old granuloma. 3. No renal calculi depicted. 4. The appendix is unremarkable. No evidence of fat stranding or indirect signs of inflammations/infections. For clinical correlation. Electronically Signed by: Jose Dick MD. (12/20/2023 05:02:28 EDT)
--- NOTE | 2023-12-20 05:21 | XRAY ---
CLINICAL HISTORY: chest pain COMPARISON: None. TECHNIQUE: Contiguous axial CT images of the chest were acquired without contrast. Coronal and sagittal reconstructions were obtained. One of the following dose reduction techniques were utilized for this exam: Automated exposure control, adjustment of the mA and/or kV according to patient size, use of iterative reconstruction. FINDINGS: Nodule measuring about 1.2 X 1.3 cm seen at the left upper lung lobe posterior segment with surrounding ground glass opacity. Otherwise, clear both lung harrison. No free or encysted pleural effusion. Heart size is normal, and there is no pericardial effusion. No pathologically enlarged mediastinal, hilar or axillary lymph node identified. There is no definite mass lesion in the chest wall. Scanned upper abdomen show small splenic calcific focus likely granulomatous. IMPRESSION: 1. Left upper lung lobe nodule. According to the Fleischner Society for lung nodule (Solitary solid nodule >8 mm (>250 mm3) 2. Low-risk and high-risk patients: consider CT at 3 months, PET-CT, or tissue sampling) Electronically Signed by: Jose Dick MD. (12/20/2023 05:16:27 EDT)
[2023-12-20] MEDS ORDERED: Hydromorphone 1 mg/ml Injection ONE (05:33)
[2023-12-20] MEDS: Hydromorphone 1 mg/ml Injection IV ONE (05:34)
[2023-12-20] MEDS ORDERED: Zofran 4 MG/2 ML VIAL ONE (05:39)
[2023-12-20] MEDS: Zofran 4 MG/2 ML VIAL IV ONE (05:40)
--- NOTE | 2023-12-20 05:57 | PCM.HP ---
<MARCO BOURNE - Last Filed: 12/20/23 06:06> History of Present Illness - Chief Complaint History of Present Illness: is a 38 year old male. Medications & Allergies Home Medications: Home Medication List No Reportable Medications [No Reported Medications] 12/20/23 [History Confirmed 12/20/23] Allergies/Adverse Reactions: Allergies Allergy/AdvReac Type Severity Reaction Status Date / Time aripiprazole [From Abilify] Allergy Verified 12/20/23 02:39 desvenlafaxine succinate Allergy Verified 12/20/23 02:39 [From Pristiq] - Physical Exam Vital Signs: Vital Signs - 24 hr Temp Pulse Resp BP BP Pulse Ox 12/20/23 06:00 88/45 97 12/20/23 05:54 104/50 97 12/20/23 05:53 98 12/20/23 05:53 98 12/20/23 05:00 126/68 12/20/23 04:59 99 12/20/23 04:50 100 12/20/23 04:40 100 12/20/23 04:39 95 12/20/23 04:25 136/69 12/20/23 04:00 128/70 12/20/23 03:30 55 L 19 141/71 98 12/20/23 03:00 55 L 18 128/67 99 12/20/23 02:30 97.0 F 66 18 141/80 141/80 99 Results - Labs Lab/Micro Results: Lab Results-Last 24 Hours 12/20/23 12/20/23 12/20/23 Range/Units 03:00 03:00 03:15 WBC 4.8 (4.23-9.07) x10^3/uL RBC 4.70 (4.63-6.08) x10^6/uL Hgb 13.9 (13.7-17.5) g/dL Hct 41.1 (40.1-51.0) % MCV 87.4 (79.0-92.2) fL MCH 29.6 (25.7-32.2) pg MCHC 33.8 (32.3-36.5) g/dL RDW 12.7 (11.6-14.4) % Plt Count 196 (163-337) x10^3/uL MPV 9.9 (9.4-12.4) fL Gran % 66.2 (34.0-67.9) % Immature Gran % (Auto) 0.2 (0.001-0.429) % Nucleat RBC Rel Count 0.0 (0.00-0.2) % Eos # (Auto) 0.08 (0.04-0.54) x10^3/uL Immature Gran # (Auto) 0.01 (0.001-0.031) x10^3u/L Absolute Lymphs (auto) 1.04 L (1.32-3.57) x10^3/uL Absolute Monos (auto) 0.47 (0.30-0.82) x10^3/uL Absolute Nucleated RBC 0.00 (0.00-0.012) x10^3u/L Lymphocytes % 21.8 (21.8-53.1) % Monocytes % 9.9 (5.3-12.2) % Eosinophils % 1.7 (0.8-7.0) % Basophils % 0.2 (0.2-1.2) % Absolute Granulocytes 3.15 (1.78-5.38) x10^3/uL Basophils # 0.01 (0.01-0.08) x10^3/uL Sodium 134 L (135-145) mmol/L Potassium 3.1 L (3.5-5.1) mmol/L Chloride 101 (98-107) mmol/L Carbon Dioxide 25 (22-30) mmol/L Anion Gap 11.2 (5-15) MEQ/L BUN 14 (9-20) mg/dL Creatinine 1.14 (0.66-1.25) mg/dL Estimated GFR 85.5 ML/MIN Glucose 134 H (74-106) mg/dL Lactic Acid 1.3 (0.4-2.0) Calcium 8.4 (8.4-10.2) mg/dL Total Bilirubin 1.30 (0.2-1.3) mg/dL AST 26 (17-59) U/L ALT 22 (0-50) U/L Alkaline Phosphatase 65 (38-126) U/L Troponin I < 0.012 (0.000-0.033) ng/mL Serum Total Protein 6.7 (6.3-8.2) g/dL Albumin 3.8 (3.5-5.0) g/dL Amylase 429 H (30-110) U/L Lipase 5751 H (23-300) U/L Urine Color (Yellow) Urine Appearance (Clear) Urine pH (4.6-8.0) Ur Specific Latimer (1.005-1.030) Urine Protein (Negative) Urine Glucose (UA) (Negative) mg/dL Urine Ketones (Negative) Urine Blood (Negative) Urine Nitrite (Negative) Urine Bilirubin (Negative) Urine Urobilinogen (0.2) mg/dL Ur Leukocyte Esterase (Negative) U Hyaline Cast (Auto) (0-2) /LPF Urine Microscopic RBC (0-5) /HPF Urine Microscopic WBC (0-5) /HPF Ur Epithelial Cells (None Seen) /HPF Urine Bacteria (None Seen) /HPF Urine Culture Reflexed (NO) 12/20/23 Range/Units 04:32 WBC (4.23-9.07) x10^3/uL RBC (4.63-6.08) x10^6/uL Hgb (13.7-17.5) g/dL Hct (40.1-51.0) % MCV (79.0-92.2) fL MCH (25.7-32.2) pg MCHC (32.3-36.5) g/dL RDW (11.6-14.4) % Plt Count (163-337) x10^3/uL MPV (9.4-12.4) fL Gran % (34.0-67.9) % Immature Gran % (Auto) (0.001-0.429) % Nucleat RBC Rel Count (0.00-0.2) % Eos # (Auto) (0.04-0.54) x10^3/uL Immature Gran # (Auto) (0.001-0.031) x10^3u/L Absolute Lymphs (auto) (1.32-3.57) x10^3/uL Absolute Monos (auto) (0.30-0.82) x10^3/uL Absolute Nucleated RBC (0.00-0.012) x10^3u/L Lymphocytes % (21.8-53.1) % Monocytes % (5.3-12.2) % Eosinophils % (0.8-7.0) % Basophils % (0.2-1.2) % Absolute Granulocytes (1.78-5.38) x10^3/uL Basophils # (0.01-0.08) x10^3/uL Sodium (135-145) mmol/L Potassium (3.5-5.1) mmol/L Chloride (98-107) mmol/L Carbon Dioxide (22-30) mmol/L Anion Gap (5-15) MEQ/L BUN (9-20) mg/dL Creatinine (0.66-1.25) mg/dL Estimated GFR ML/MIN Glucose (74-106) mg/dL Lactic Acid (0.4-2.0) Calcium (8.4-10.2) mg/dL Total Bilirubin (0.2-1.3) mg/dL AST (17-59) U/L ALT (0-50) U/L Alkaline Phosphatase (38-126) U/L Troponin I (0.000-0.033) ng/mL Serum Total Protein (6.3-8.2) g/dL Albumin (3.5-5.0) g/dL Amylase (30-110) U/L Lipase (23-300) U/L Urine Color Dark Yellow (Yellow) Urine Appearance Clear (Clear) Urine pH 5.5 (4.6-8.0) Ur Specific Latimer >=1.030 A (1.005-1.030) Urine Protein 30 (Negative) Urine Glucose (UA) Negative (Negative) mg/dL Urine Ketones Negative (Negative) Urine Blood Negative (Negative) Urine Nitrite Negative (Negative) Urine Bilirubin Negative (Negative) Urine Urobilinogen 1.0 A (0.2) mg/dL Ur Leukocyte Esterase Negative (Negative) U Hyaline Cast (Auto) 3-5 A (0-2) /LPF Urine Microscopic RBC 0-2 (0-5) /HPF Urine Microscopic WBC 0-2 (0-5) /HPF Ur Epithelial Cells None Seen (None Seen) /HPF Urine Bacteria None Seen (None Seen) /HPF Urine Culture Reflexed NO (NO) - Radiology Impressions Radiology Exams & Impressions: Radiology Procedures Category Date Time Status ABDOMEN AND PELVIS W/0 CONTRAS [CT] Stat Exams 12/20/23 02:59 Completed CHEST WITHOUT CONTRAST [CT] Stat Exams 12/20/23 02:59 Completed Telemedicine Encounter - Telemedicine Encounter Telemedicine Encounter: "The entirety of this encounter was performed via Telemedicine" This visit was performed using real-time audio and video connection between my location and thepatients locationwith the assistance of a surrogateat the patients location. Written or verbal consent was obtained from the patient/guardian to perform this visit usingsynchronoustelemedicine technology. Any patient questions regarding the telemedicine interaction were answered. <ALBERTO CHRISTIE - Last Filed: 12/20/23 06:34> History of Present Illness - Chief Complaint Chief Complaint: abd pain/pancreatitis Date: 12/20/23 History of Present Illness: Mr. REEDER is a 38 year old male with a past medical history significant for bipolar disorder, anxiety and COPD who was at [facility] a day ago for treatment of a tooth infection, given oral antibiotics, and discharged who presents to the ER with acute onset abdominal pain associated with nausea and vomiting. Amylase/lipase were markedly elevated and he was recommended for admission for pancreatitis. CT scan abd without contrast did not demonstrate gallstones, CT chest did show a Left lung nodule. Initial labs were notable for a sodium of 134 and potassium of 3.1. He was given IVFs, pain medicine with Dilaudid, and he currently appears hemodynamically stable and in no acute distress. No fever/chills. No chest pain or shortness of breath. No dysuria, hematuria or foamy urine. No ETOH use. - Review of Systems Constitutional: No Fever, No Chills Eyes: No Vision Changes Ears, Nose, & Throat: Loose Teeth, No Nose Discharge, No Sinus Drainage Respiratory: No Cough, No Orthopnea, No Short Of Breath Cardiac: No Chest Pain, No Edema, No Palpitations Abdominal/Gastrointestinal: Abdominal Pain, Nausea, Vomiting Genitourinary Symptoms: No Dysuria, No Frequency, No Hematuria, No Urinary Retention Musculoskeletal: No Back Pain, No Neck Pain Skin: No Rash Neurological: No Focal Weakness Psychological: No Suicidal Ideations Endocrine: No Polyuria, No Polydipsia - Past Medical History Past Medical History: Yes Neurological History: Seizures ENT History: No Pertinent History Cardiac History: No Pertinent History Respiratory History: COPD, Emphysema Endocrine Medical History: No Pertinent History Musculoskelatal History: No Pertinent History GI Medical History: No Pertinent History History: No Pertinent History Pyscho-Social History: Anxiety, Bipolar Male Reproductive Disorders: No Pertinent History Comment: pt had irregular heart beat as a child but has outgrown has been diagnosed with being bipolar but hasnt taken meds for years - Past Surgical History Past Surgical History: Yes Neuro Surgical History: No Pertinent History Cardiac History: No Pertinent History Respiratory Surgery: No Pertinent History GI Surgical History: Hernia Repair Genitourinary Surgical Hx: No Pertinent History Musculskeletal Surgical Hx: Orthopedic Surgery Male Surgical History: No Pertinent History Other Surgical History: TONSIL,ELBOW - Social History Smoking Status: Current every day smoker How long have you smoked: 15yo Exposure to second hand smoke: No Alcohol: None Drug Use: methamphetamines - Physical Exam Vital Signs: Vital Signs - 24 hr Temp Pulse Resp BP BP Pulse Ox 12/20/23 05:49 98 12/20/23 05:00 126/68 12/20/23 04:59 99 12/20/23 04:50 100 12/20/23 04:40 100 12/20/23 04:39 95 12/20/23 04:25 136/69 12/20/23 04:00 128/70 12/20/23 03:30 55 L 19 141/71 98 12/20/23 03:00 55 L 18 128/67 99 12/20/23 02:30 97.0 F 66 18 141/80 141/80 99 General Appearance: no apparent distress Neurologic Exam: alert Ears, Nose, Throat Exam: dry mucous membranes Neck Exam: supple Respiratory Exam: No respiratory distress, No accessory muscle use Cardiovascular Exam: regular rate/rhythm Gastrointestinal/Abdomen Exam: soft, tenderness Extremity Exam: No pedal edema, No swelling Skin Exam: normal color, No rash Results - Labs Lab/Micro Results: Lab Results-Last 24 Hours 12/20/23 12/20/23 12/20/23 Range/Units 03:00 03:00 03:15 WBC 4.8 (4.23-9.07) x10^3/uL RBC 4.70 (4.63-6.08) x10^6/uL Hgb 13.9 (13.7-17.5) g/dL Hct 41.1 (40.1-51.0) % MCV 87.4 (79.0-92.2) fL MCH 29.6 (25.7-32.2) pg MCHC 33.8 (32.3-36.5) g/dL RDW 12.7 (11.6-14.4) % Plt Count 196 (163-337) x10^3/uL MPV 9.9 (9.4-12.4) fL Gran % 66.2 (34.0-67.9) % Immature Gran % (Auto) 0.2 (0.001-0.429) % Nucleat RBC Rel Count 0.0 (0.00-0.2) % Eos # (Auto) 0.08 (0.04-0.54) x10^3/uL Immature Gran # (Auto) 0.01 (0.001-0.031) x10^3u/L Absolute Lymphs (auto) 1.04 L (1.32-3.57) x10^3/uL Absolute Monos (auto) 0.47 (0.30-0.82) x10^3/uL Absolute Nucleated RBC 0.00 (0.00-0.012) x10^3u/L Lymphocytes % 21.8 (21.8-53.1) % Monocytes % 9.9 (5.3-12.2) % Eosinophils % 1.7 (0.8-7.0) % Basophils % 0.2 (0.2-1.2) % Absolute Granulocytes 3.15 (1.78-5.38) x10^3/uL Basophils # 0.01 (0.01-0.08) x10^3/uL Sodium 134 L (135-145) mmol/L Potassium 3.1 L (3.5-5.1) mmol/L Chloride 101 (98-107) mmol/L Carbon Dioxide 25 (22-30) mmol/L Anion Gap 11.2 (5-15) MEQ/L BUN 14 (9-20) mg/dL Creatinine 1.14 (0.66-1.25) mg/dL Estimated GFR 85.5 ML/MIN Glucose 134 H (74-106) mg/dL Lactic Acid 1.3 (0.4-2.0) Calcium 8.4 (8.4-10.2) mg/dL Total Bilirubin 1.30 (0.2-1.3) mg/dL AST 26 (17-59) U/L ALT 22 (0-50) U/L Alkaline Phosphatase 65 (38-126) U/L Troponin I < 0.012 (0.000-0.033) ng/mL Serum Total Protein 6.7 (6.3-8.2) g/dL Albumin 3.8 (3.5-5.0) g/dL Amylase 429 H (30-110) U/L Lipase 5751 H (23-300) U/L Urine Color (Yellow) Urine Appearance (Clear) Urine pH (4.6-8.0) Ur Specific Latimer (1.005-1.030) Urine Protein (Negative) Urine Glucose (UA) (Negative) mg/dL Urine Ketones (Negative) Urine Blood (Negative) Urine Nitrite (Negative) Urine Bilirubin (Negative) Urine Urobilinogen (0.2) mg/dL Ur Leukocyte Esterase (Negative) U Hyaline Cast (Auto) (0-2) /LPF Urine Microscopic RBC (0-5) /HPF Urine Microscopic WBC (0-5) /HPF Ur Epithelial Cells (None Seen) /HPF Urine Bacteria (None Seen) /HPF Urine Culture Reflexed (NO) 12/20/23 Range/Units 04:32 WBC (4.23-9.07) x10^3/uL RBC (4.63-6.08) x10^6/uL Hgb (13.7-17.5) g/dL Hct (40.1-51.0) % MCV (79.0-92.2) fL MCH (25.7-32.2) pg MCHC (32.3-36.5) g/dL RDW (11.6-14.4) % Plt Count (163-337) x10^3/uL MPV (9.4-12.4) fL Gran % (34.0-67.9) % Immature Gran % (Auto) (0.001-0.429) % Nucleat RBC Rel Count (0.00-0.2) % Eos # (Auto) (0.04-0.54) x10^3/uL Immature Gran # (Auto) (0.001-0.031) x10^3u/L Absolute Lymphs (auto) (1.32-3.57) x10^3/uL Absolute Monos (auto) (0.30-0.82) x10^3/uL Absolute Nucleated RBC (0.00-0.012) x10^3u/L Lymphocytes % (21.8-53.1) % Monocytes % (5.3-12.2) % Eosinophils % (0.8-7.0) % Basophils % (0.2-1.2) % Absolute Granulocytes (1.78-5.38) x10^3/uL Basophils # (0.01-0.08) x10^3/uL Sodium (135-145) mmol/L Potassium (3.5-5.1) mmol/L Chloride (98-107) mmol/L Carbon Dioxide (22-30) mmol/L Anion Gap (5-15) MEQ/L BUN (9-20) mg/dL Creatinine (0.66-1.25) mg/dL Estimated GFR ML/MIN Glucose (74-106) mg/dL Lactic Acid (0.4-2.0) Calcium (8.4-10.2) mg/dL Total Bilirubin (0.2-1.3) mg/dL AST (17-59) U/L ALT (0-50) U/L Alkaline Phosphatase (38-126) U/L Troponin I (0.000-0.033) ng/mL Serum Total Protein (6.3-8.2) g/dL Albumin (3.5-5.0) g/dL Amylase (30-110) U/L Lipase (23-300) U/L Urine Color Dark Yellow (Yellow) Urine Appearance Clear (Clear) Urine pH 5.5 (4.6-8.0) Ur Specific Latimer >=1.030 A (1.005-1.030) Urine Protein 30 (Negative) Urine Glucose (UA) Negative (Negative) mg/dL Urine Ketones Negative (Negative) Urine Blood Negative (Negative) Urine Nitrite Negative (Negative) Urine Bilirubin Negative (Negative) Urine Urobilinogen 1.0 A (0.2) mg/dL Ur Leukocyte Esterase Negative (Negative) U Hyaline Cast (Auto) 3-5 A (0-2) /LPF Urine Microscopic RBC 0-2 (0-5) /HPF Urine Microscopic WBC 0-2 (0-5) /HPF Ur Epithelial Cells None Seen (None Seen) /HPF Urine Bacteria None Seen (None Seen) /HPF Urine Culture Reflexed NO (NO) - Radiology Impressions Radiology Exams & Impressions: Radiology Procedures Category Date Time Status ABDOMEN AND PELVIS W/0 CONTRAS [CT] Stat Exams 12/20/23 02:59 Completed CHEST WITHOUT CONTRAST [CT] Stat Exams 12/20/23 02:59 Completed Assessment/Plan (1) Pancreatitis Status: Acute Qualifiers: Chronicity: acute Pancreatitis type: idiopathic Assessment & Plan: Acute pancreatitis not related to gallstones or alcohol 1. Admit to hospital 2. IVFs, keep NPO 3. Check CT with IV contrast 4. Trend amylase/lipase 5. Pain control 6. DVT/GI prophylaxis Code(s): K85.90 - ACUTE PANCREATITIS WITHOUT NECROSIS OR INFECTION, UNSP (2) Hyponatremia Status: Acute Assessment & Plan: Hypovolemic hyponatremia 1. Isotonic IVFs 2. Check urine lytes, urine osmo 3. Monitor sodium Code(s): E87.1 - HYPO-OSMOLALITY AND HYPONATREMIA (3) Hypokalemia Status: Acute Assessment & Plan: Likely from GI losses 1. IVFs with KCl 2. Check Mg 3. Trend lytes Code(s): E87.6 - HYPOKALEMIA (4) Anxiety Status: Acute Code(s): F41.9 - ANXIETY DISORDER, UNSPECIFIED (5) Dental abscess Status: Acute Assessment & Plan: Status post recent visit to ER and started antibiotics 1. Will switch to IV antibiotics while NPO Code(s): K04.7 - PERIAPICAL ABSCESS WITHOUT SINUS (6) Nodule of left lung Status: Acute Assessment & Plan: Should be monitored given history of tobacco Code(s): R91.1 - SOLITARY PULMONARY NODULE Telemedicine Encounter - Telemedicine Encounter Telemedicine Encounter: "The entirety of this encounter was performed via Telemedicine" This visit was performed using real-time audio and video connection between my location and thepatients locationwith the assistance of a surrogateat the patients location. Written or verbal consent was obtained from the patient/guardian to perform this visit usingSembrairelemedicine technology. Any patient questions regarding the telemedicine interaction were answered. Addendum: The patient has decided to leave AMA.
[2023-12-20] MEDS ORDERED: FEVERALL 650 MG PR PRN (06:06)
[2023-12-20] MEDS ORDERED: Hydromorphone 1 mg/ml Injection IV PRN (06:08)
[2023-12-20] MEDS ORDERED: Sodium Chloride 0.9% W/ 20 mEq KCl/LITER 1,000 ML IV SCH (06:15)
[2023-12-20] MEDS: POTASSIUM CHLORIDE 20 mEq IN WATER 100ML 20 MEQ/100 ML BAG IV ONE (06:25)
[2023-12-20 06:30] VITALS: BP 110/54; PULSE 60; TEMP 98; O2SAT 99
[2023-12-20] MEDS ORDERED: ENOXAPARIN SODIUM SQ SCH (10:00)
[2023-12-20] MEDS ORDERED: KEFZOL 1 GM/50 ML PREMIX** 1 GM/50 ML IVPB IV SCH (14:00)
== END 2023-12-20 06:30 | disposition home or self-care (01) ==
LOC: ED 02:21
DX: E87.6 Hypokalemia (principal); R10.9 Unspecified abdominal pain; K04.7 Periapical abscess without sinus; K85.90 Acute pancreatitis without necrosis or infection, unspecified; R91.1 Solitary pulmonary nodule
CPT/HCPCS: 36000; 36415; 71250; 74176; 80053; 81001; 82150; 83605; 83690; 84484; 85025; 93005; 96365; 96374; 96375; 99284; J0696; J1170; J2405